=== PATIENT | male | born 1965 | race Caucasian/White ===

== ENCOUNTER 2018-03-05 09:50 | Emergency (ER) | payer OTHER ==
[2018-03-05] MEDS ORDERED: ceFAZolin 1 GM VIAL IVP ONE (10:11)
[2018-03-05] MEDS ORDERED: IBUPROFEN 600 MG TAB PO ONE ×2 (10:32→10:35)
--- NOTE | 2018-03-05 10:36 | EDPHY ---
H & P Time Seen by Provider: 03/05/18 09:55 HPI/ROS: This patient presents with elbow swelling and redness with associated pain 6/10 intensity. He noticed it early in the morning while rolling over in bed and noticed associated redness and swelling. He took 400 mg of ibuprofen at 4:30 a.m. In the morning with mild relief and notes no other exacerbating factors. He is quite concerned about this symptom because of a prior episode of septic bursitis to the left elbow and which she feels oral dicloxacillin and required IV vancomycin in 2010. He came in by private vehicle for evaluation. ROS: Constitutional: No fevers or other constitutional symptoms Integumentary: No skin rash elsewhere. Musculoskeletal: No deep bony pain in the elbow or circumferential swelling. Integumentary: He notes a small abrasion to the this associated left elbow. Cardiovascular: No lightheadedness GI: No nausea vomiting 7 point ROS is otherwise negative. Smoking Status: Never smoked Physical Exam: Physical Exam Vital signs are normal. General: No acute distress Lungs: No respiratory distress. Cardiac: Brisk capillary refill is intact throughout. Pulses are 2+ and symmetric in the affected extremity. Extremities: Atraumatic normal except for left elbow Left elbow: Patient has swelling erythema and tenderness to the left elbow overlying the olecranon area there is subacute superficial abrasion with scab less than 1 cm in size within this area of erythema. The circumference of erythema is approximately 6 cm does not extend in the upper arm or forearm. The patient is able to flex extend his elbow without increase in pain. There is no circumferential elbow swelling. No bony tenderness. Skin: No rash or pallor. See findings as above. No other areas of erythema or rash. Neuro: Alert and oriented with no sensorimotor deficits in the affected elbow ROS: Elbow cellulitis that inflammatory bursitis, septic bursitis Constitutional: Initial Vital Signs Temperature (C) 37.2 C 03/05/18 09:54 Heart Rate 72 03/05/18 09:54 Respiratory Rate 16 03/05/18 09:54 Blood Pressure 151/95 H 03/05/18 09:54 O2 Sat (%) 97 03/05/18 09:54 O2 Delivery Mode Room Air Allergies/Adverse Reactions: No Known Allergies Allergy (Verified 03/05/18 09:57) Home Medications: Medication Instructions Recorded Aspirin 03/05/18 Doxycycline Hyclate [Vibramycin 100 mg PO BID #20 cap 03/05/18 100 MG (*)] Lisinopril 03/05/18 traMADol [Ultram 50 mg (*)] 50 - 100 mg PO Q4 PRN #15 tab 03/05/18 MDM/Departure - MDM Procedures: Bursitis I&D Indication: Potential septic bursitis After verbal consent using chlorhexidine scrub, 1% plain lidocaine with sodium bicarb buffer, 27 gauge needle, 2 mL with good effect, 11. Scalpel blade made a small T-shaped incision and then entered the bursa with sterile suture scissors with clear release of bursal fluid. Patient tolerated this well without complications. Culture was obtained. Bacitracin dressing and Lanre wrap in applied by our tech. There were no complications. Medications Given: Discontinued Medications Cefazolin Sodium (Ancef) 1 gm IVP EDNOW ONE PRN Reason: Protocol Stop: 03/05/18 10:12 Last Admin: 03/05/18 10:25 Dose: 1 gm Ibuprofen (Motrin) 600 mg PO EDNOW ONE Stop: 03/05/18 10:36 Last Admin: 03/05/18 10:35 Dose: 600 mg ED Course/Re-evaluation: IV Ancef, ibuprofen p.o. Dressing applied after I&D Discussion: Patient with findings consistent with elbow cellulitis and underlying bursitis. Given lack of purulence in the bursa it appears this patient has cellulitis with underlying inflammatory bursitis. I counseled regarding this. However given previous septic bursitis the required IV vancomycin after feeling oral dicloxacillin patient is quite apprehensive about feeling oral antibiotics. Proceed with an IV dose of Ancef and will start him on doxycycline. Counseled regarding wound care and he understands need to return emergency department should she develop worsening despite treatment plan. - Depart Disposition: Home, Routine, Self-Care Clinical Impression: Cellulitis of left elbow Bursitis of left elbow Qualifiers: Elbow bursitis location: olecranon bursitis Qualified Code(s): M70.22 - Olecranon bursitis, left elbow Condition: Good Instructions: Cellulitis (ED), Elbow Bursitis (ED) Additional Instructions: Diagnosis: 1. Elbow cellulitis 2. Elbow bursitis Plan: Ibuprofen-600 mg per 6 hr as needed for pain Tylenol in addition as needed up to 1000 mg per 4 hr. However do not exceed 3000 mg of Tylenol in 24 hr Tramadol in addition if needed for pain control. No driving, alcohol or come tramadol. Doxycycline antibiotic for the next 10 days. Take a probiotic and/or yogurt while on this to prevent loose stools. Return for any significant worsening despite the treatment plan. Prescriptions: Doxycycline Hyclate [Vibramycin 100 MG (*)] 100 mg PO BID #20 cap traMADol [Ultram 50 mg (*)] 50 - 100 mg PO Q4 PRN #15 tab PRN Reason: breakthrough pain Referrals: Cathy Soler [Primary Care Provider] - As per Instructions
[2018-03-05 11:00] VITALS: BP 149/97
== END 2018-03-05 10:53 | disposition home or self-care (01) ==
LOC: CED 09:50
PROC: 0J9F3ZZ Drainage of Left Upper Arm Subcutaneous Tissue and Fascia, Percutaneous Approach (ICD-10-PCS; principal; 2018-03-05)
DX: L03.114 Cellulitis of left upper limb (principal); M70.22 Olecranon bursitis, left elbow; Z79.82 Long term (current) use of aspirin
CPT/HCPCS: 96374; J0690

== ENCOUNTER 2018-03-06 09:16 | Emergency (ER) | payer OTHER ==
--- NOTE | 2018-03-06 10:34 | EDPHY ---
H & P Time Seen by Provider: 03/06/18 09:45 HPI/ROS: I saw this patient yesterday with left elbow cellulitis and underlying elbow bursitis-olecranon with prior history of septic bursitis in 2015 other treated with a single dose of Ancef and start him on doxycycline. He awakened early this morning with chills. He had ongoing moderate elbow discomfort similar to yesterday. He took ibuprofen 600 mg at 8:15 a.m. With subjective fever and a detected a temperature of a 100.6 degrees when he measured at home at 9:00 a.m.. Due to concern over potential worsening infection given the presence of fever and chills he came back in for recheck of his elbow. He drove himself here by private vehicle. He reports compliance with doxycycline having taken 3 doses since I saw him yesterday morning here. ROS: Constitutional: Fevers and chills as above Cardiovascular: No lightheadedness GI: No nausea vomiting integumentary: The dressing in Lanre wrap remained on the elbow and has not recheck to the elbow since last night. Neuro: No numbness or tingling the elbow. 5 point ROS is otherwise negative Past Medical/Surgical History: Elbow cellulitis, bursitis Hypertension Smoking Status: Never smoked Physical Exam: Physical Exam Vital signs are normal. General: No acute distress Eyes: Pupils equal and react to light. Extraocular motions are intact. Lungs: No respiratory distress. Cardiac: Brisk capillary refill is intact throughout. Pulses are 2+ and symmetric in the affected extremity. Left elbow: The swelling is diminished compared to yesterday after draining olecranon bursa. There is erythema that extends to 3 cm beyond the initial surgical marker demarcation of erythema from yesterday inferiorly. No extension superiorly. Patient has minimal tenderness and slight warmth to touch to the area of erythema. There is no circumferential elbow swelling retains good range of motion of his elbow without significant pain Skin: See skin findings and elbow above. Otherwise No rash or pallor. Neuro: Alert with no sensorimotor deficits in the affected elbow. Constitutional: Initial Vital Signs Temperature (C) 37 C 03/06/18 09:35 Heart Rate 81 03/06/18 09:35 Respiratory Rate 16 03/06/18 09:35 Blood Pressure 148/96 H 03/06/18 09:35 O2 Sat (%) 95 03/06/18 09:35 O2 Delivery Mode Room Air Allergies/Adverse Reactions: No Known Allergies Allergy (Verified 03/06/18 09:39) Home Medications: Medication Instructions Recorded Aspirin 03/05/18 Doxycycline Hyclate [Vibramycin 100 mg PO BID #20 cap 03/05/18 100 MG (*)] Lisinopril 03/05/18 traMADol [Ultram 50 mg (*)] 50 - 100 mg PO Q4 PRN #15 tab 03/05/18 MDM/Departure - MDM Medications Given: Discontinued Medications Ceftriaxone Sodium/Dextrose (Rocephin 1 Gm (Premix)) 50 mls @ 100 mls/hr IV EDNOW ONE PRN Reason: Protocol Stop: 03/06/18 10:20 Last Admin: 03/06/18 10:24 Dose: 50 mls ED Course/Re-evaluation: IV ceftriaxone 1 g Discussion: Patient with the above cellulitis with underlying bursitis that seems primarily inflammatory given lack of overt purulence with culture pending. Given his fevers chills overnight gave him another dose of IV antibiotics. He will continue his doxycycline I suspect that will continue to improve. Given the doubt for need of any subsequent parental antibiotics will remove his IV today. - Depart Disposition: Home, Routine, Self-Care Clinical Impression: Cellulitis of left elbow, Olecranon bursitis of left elbow Condition: Good Instructions: Cellulitis (ED), Elbow Bursitis (ED) Additional Instructions: Diagnosis: Recheck left elbow cellulitis and bursitis You received a dose of ceftriaxone antibiotic IV today. Plan: Continue your doxycycline antibiotic Continue ibuprofen Tylenol for discomfort Clean the wound daily Return for any significant worsening despite the treatment plan.
[2018-03-06 11:09] VITALS: BP 140/85
== END 2018-03-06 11:09 | disposition home or self-care (01) ==
LOC: CED 09:16
DX: M70.22 Olecranon bursitis, left elbow (principal); L03.114 Cellulitis of left upper limb; I10 Essential (primary) hypertension; Z79.82 Long term (current) use of aspirin
CPT/HCPCS: 96365; J0696

== ENCOUNTER 2018-03-07 15:33 | Emergency (ER) | payer OTHER ==
[2018-03-07 15:53] VITALS: BP 168/78
--- NOTE | 2018-03-07 16:29 | EDPHY ---
H & P Stated Complaint: PT. states here for Time Seen by Provider: 03/07/18 15:57 HPI/ROS: CHIEF COMPLAINT: Left arm infection HISTORY OF PRESENT ILLNESS: The patient is a 52-year-old man who is been seen here yesterday and the day before for a cellulitis/bursitis to his left elbow. He has been concerned because he had a similar situation in 2010 that required several days with the vancomycin before it got better. He states that he is actually feeling better today. He no longer has a fever. His elbows less painful. He is however concerned because the redness has spread slightly up his tricep. No purulence. Cultures came back with MSSA. He was initially given doxycycline and staff and then yesterday was given doxycycline and Rocephin. REVIEW OF SYSTEMS: Constitutional: denies: chills, fever, recent illness, recent injury EENTM: denies: blurred vision, double vision, nose congestion Respiratory: denies: cough, shortness of breath Cardiac: denies: chest pain, irregular heart rate, lightheadedness, palpitations Gastrointestinal/Abdominal: denies: abdominal pain, diarrhea, nausea, vomiting, blood streaked stools Genitourinary: denies: dysuria, frequency, hematuria, pain Musculoskeletal: denies: joint pain, muscle pain Skin: See above Neurological: denies: headache, numbness, paresthesia, tingling, dizziness, weakness Hematologic/Lymphatic: denies: blood clots, easy bleeding, easy bruising Immunologic/allergic: denies: HIV/AIDS, transplant EXAM: GENERAL: Well-appearing, well-nourished and in no acute distress. HEAD: Atraumatic, normocephalic. EYES: Pupils equal round and reactive to light, extraocular movements intact, sclera anicteric, conjunctiva are normal. ENT: TMs normal, nares patent, oropharynx clear without exudates. Moist mucous membranes. NECK: Normal range of motion, supple without lymphadenopathy or JVD. LUNGS: Breath sounds clear to auscultation bilaterally and equal. No wheezes rales or rhonchi. HEART: Regular rate and rhythm without murmurs, rubs or gallops. ABDOMEN: Soft, nontender, normoactive bowel sounds. No guarding, no rebound. No masses appreciated. BACK: No CVA tenderness, no spinal tenderness, step-offs or deformities EXTREMITIES: Normal range of motion, no pitting or edema. No clubbing or cyanosis. NEUROLOGICAL: Cranial nerves II through XII grossly intact. Normal speech, normal gait. 5/5 strength, normal movement in all extremities, normal sensation PSYCH: Normal mood, normal affect. SKIN: Left elbow with very faint cellulitis to left elbow up the triceps region. No purulence. No abscess. Source: Patient Exam Limitations: No limitations - Personal History Tetanus Vaccine Date: within 10 years - Medical/Surgical History Hx Asthma: No Hx Chronic Respiratory Disease: No Hx Diabetes: No Hx Cardiac Disease: No Hx Renal Disease: No Hx Cirrhosis: No Hx Alcoholism: No Hx HIV/AIDS: No Hx Splenectomy or Spleen Trauma: No Other PMH: L elbow bursitis, HTN, FLOYD, appendectomy - Social History Smoking Status: Never smoked Constitutional: Initial Vital Signs Temperature (C) 37.2 C 03/07/18 15:42 Heart Rate 87 03/07/18 15:42 Respiratory Rate 16 03/07/18 15:42 Blood Pressure 168/78 H 03/07/18 15:42 O2 Sat (%) 95 03/07/18 15:42 O2 Delivery Mode Room Air Allergies/Adverse Reactions: No Known Allergies Allergy (Verified 03/07/18 15:39) Home Medications: Medication Instructions Recorded Aspirin 03/05/18 Doxycycline Hyclate [Vibramycin 100 mg PO BID #20 cap 03/05/18 100 MG (*)] Lisinopril 03/05/18 traMADol [Ultram 50 mg (*)] 50 - 100 mg PO Q4 PRN #15 tab 03/05/18 Cephalexin [Keflex (RX)] 500 mg PO QID #30 cap 03/07/18 Medical Decision Making ED Course/Re-evaluation: The patient overall is feeling better than yesterday. He no longer has a fever. His elbow is less painful. He does however have very minor extension of the erythema. It is very faint. It is not thickened or indurated. His cultures are back today and should be sensitive to doxycycline as well as the Ancef and Rocephin. It is possible however that this is actually a strep infection and therefore doxycycline will not be effective. I will give him another dose of Rocephin here and add Keflex to his regimen. We discussed vancomycin since he has had success with this in the past. A single dose would not be helpful however and he would have to return every 12 hr for several days or be admitted. We would like to avoid this. At this point I feel that he is improving overall and elevation to vancomycin is not warranted. He understands that I may be wrong and that if his symptoms worsen tomorrow to return. Differential Diagnosis: Partial list of the Differential diagnosis considered include but were not limited to; cellulitis, bursitis and although unlikely based on the history and physical exam, I also considered abscess, fasciitis, septic joint. I discussed these differential diagnoses and the plan with the patient as well as the usual and expected course. The patient understands that the diagnosis is provisional and that in medicine we are not always correct and that further workup is often warranted. Usual and customary warnings were given. All of the patient's questions were answered. The patient was instructed to return to the emergency department should the symptoms at all worsen or return, otherwise to followup with the physician as we discussed. - Data Points Medications Given: Discontinued Medications Ceftriaxone Sodium/Dextrose (Rocephin 1 Gm (Premix)) 50 mls @ 100 mls/hr IV EDNOW ONE PRN Reason: Protocol Stop: 03/07/18 16:54 Last Admin: 03/07/18 16:45 Dose: 50 mls Departure - Departure Disposition: Home, Routine, Self-Care Clinical Impression: Cellulitis Qualifiers: Site of cellulitis: extremity Site of cellulitis of extremity: upper extremity Laterality: left Qualified Code(s): L03.114 - Cellulitis of left upper limb Condition: Fair Instructions: Cephalexin (By mouth), Cellulitis (ED) Referrals: Cathy Soler [Primary Care Provider] - As per Instructions Prescriptions: Cephalexin [Keflex (RX)] 500 mg PO QID #30 cap
== END 2018-03-07 17:25 | disposition home or self-care (01) ==
LOC: CED 15:33
DX: L03.114 Cellulitis of left upper limb (principal); I10 Essential (primary) hypertension; Z79.82 Long term (current) use of aspirin
CPT/HCPCS: 96365; J0696

== ENCOUNTER 2018-03-07 20:23 | Emergency (ER) | payer OTHER ==
--- NOTE | 2018-03-07 20:34 | EDPHY ---
H & P Stated Complaint: returned ED visit due fevers and inc. pain from Lt elbow infection Time Seen by Provider: 03/07/18 20:31 HPI/ROS: CHIEF COMPLAINT: Cellulitis HISTORY OF PRESENT ILLNESS: Patient is a 52-year-old man who comes to the emergency department complaining of fever and cellulitis. I saw him a few hours ago for the same. At that time he stated that he was overall feeling better but there was slightly increased to the erythema of his arm. We discussed options. His cultures show MSSA. He was on doxycycline. I gave him a dose of IV Rocephin added Keflex. We told him to come back if his fever returned greater than 101. He states that it is now 102. He wishes to have vancomycin infusions because he had something similar to this in 2010 and that was the only thing that seem to help him. REVIEW OF SYSTEMS: Constitutional: denies: chills, fever, recent illness, recent injury EENTM: denies: blurred vision, double vision, nose congestion Respiratory: denies: cough, shortness of breath Cardiac: denies: chest pain, irregular heart rate, lightheadedness, palpitations Gastrointestinal/Abdominal: denies: abdominal pain, diarrhea, nausea, vomiting, blood streaked stools Genitourinary: denies: dysuria, frequency, hematuria, pain Musculoskeletal: denies: joint pain, muscle pain Skin: See above Neurological: denies: headache, numbness, paresthesia, tingling, dizziness, weakness Hematologic/Lymphatic: denies: blood clots, easy bleeding, easy bruising Immunologic/allergic: denies: HIV/AIDS, transplant EXAM: GENERAL: Moderate distress. HEAD: Atraumatic, normocephalic. EYES: Pupils equal round and reactive to light, extraocular movements intact, sclera anicteric, conjunctiva are normal. ENT: TMs normal, nares patent, oropharynx clear without exudates. Moist mucous membranes. NECK: Normal range of motion, supple without lymphadenopathy or JVD. LUNGS: Breath sounds clear to auscultation bilaterally and equal. No wheezes rales or rhonchi. HEART: Regular rate and rhythm without murmurs, rubs or gallops. ABDOMEN: Soft, nontender, normoactive bowel sounds. No guarding, no rebound. No masses appreciated. BACK: No CVA tenderness, no spinal tenderness, step-offs or deformities EXTREMITIES: Normal range of motion, no pitting or edema. No clubbing or cyanosis. NEUROLOGICAL: Cranial nerves II through XII grossly intact. Normal speech, normal gait. 5/5 strength, normal movement in all extremities, normal sensation PSYCH: Normal mood, normal affect. SKIN: Left elbow cellulitis, warm to the touch, no induration. No purulence. Source: Patient, Family Exam Limitations: No limitations - Personal History Tetanus Vaccine Date: within 10 years - Medical/Surgical History Hx Asthma: No Hx Chronic Respiratory Disease: No Hx Diabetes: No Hx Cardiac Disease: No Hx Renal Disease: No Hx Cirrhosis: No Hx Alcoholism: No Hx HIV/AIDS: No Hx Splenectomy or Spleen Trauma: No Other PMH: L elbow bursitis, HTN, FLOYD, appendectomy - Family History Significant Family History: No pertinent family hx - Social History Smoking Status: Never smoked Alcohol Use: None Constitutional: Initial Vital Signs Temperature (C) 37.7 C 03/07/18 20:28 Heart Rate 106 H 03/07/18 20:28 Respiratory Rate 20 03/07/18 20:28 Blood Pressure 184/104 H 03/07/18 20:28 O2 Sat (%) 98 03/07/18 20:28 O2 Delivery Mode Room Air Allergies/Adverse Reactions: No Known Allergies Allergy (Verified 03/08/18 09:12) Home Medications: Medication Instructions Recorded Aspirin 03/05/18 Doxycycline Hyclate [Vibramycin 100 mg PO BID #20 cap 03/05/18 100 MG (*)] Lisinopril 03/05/18 traMADol [Ultram 50 mg (*)] 50 - 100 mg PO Q4 PRN #15 tab 03/05/18 Cephalexin [Keflex (RX)] 500 mg PO QID #30 cap 03/07/18 Medical Decision Making ED Course/Re-evaluation: I will start the patient on vancomycin at the larger dose which he receive successfully during his previous similar infection. Patient is feeling better. He will return every 12 hr over the weekend for repeat infusions and then will referred to infectious disease on Friday. Differential Diagnosis: Partial list of the Differential diagnosis considered include but were not limited to; cellulitis, bursitis, abscess and although unlikely based on the history and physical exam, I also considered osteomyelitis, fasciitis, allergic reaction, septic joint. I discussed these differential diagnoses and the plan with the patient as well as the usual and expected course. The patient understands that the diagnosis is provisional and that in medicine we are not always correct and that further workup is often warranted. Usual and customary warnings were given. All of the patient's questions were answered. The patient was instructed to return to the emergency department should the symptoms at all worsen or return, otherwise to followup with the physician as we discussed. - Data Points Medications Given: Discontinued Medications Vancomycin HCl 1.75 gm/ Sodium (Chloride) 250 mls @ 250 mls/hr IV EDNOW ONE PRN Reason: Protocol Stop: 03/07/18 21:34 Last Admin: 03/07/18 20:50 Dose: 250 mls Departure - Departure Disposition: Home, Routine, Self-Care Clinical Impression: Cellulitis Qualifiers: Site of cellulitis: extremity Site of cellulitis of extremity: upper extremity Laterality: left Qualified Code(s): L03.114 - Cellulitis of left upper limb Condition: Fair Instructions: Cellulitis (DC) Additional Instructions: Return in 12 hr for another vancomycin infusion 1.75 g Referrals: Cathy Soler [Primary Care Provider] - As per Instructions Da Jones MD [Medical Doctor] - 2-3 days, call for appt. ED,PHYSICIAN VIVIAN [Medical Doctor] - 1 day without fail (12 hr)
[2018-03-07] MEDS ORDERED: VANCOMYCIN 1.75 GM in NS 250 ML IV ONE (20:35)
[2018-03-07] MEDS ORDERED: IBUPROFEN 800 MG TAB PO ONE (20:42)
[2018-03-07 23:04] VITALS: BP 124/62
== END 2018-03-07 23:01 | disposition home or self-care (01) ==
LOC: CED 20:23
DX: L03.114 Cellulitis of left upper limb (principal); I10 Essential (primary) hypertension; Z79.82 Long term (current) use of aspirin
CPT/HCPCS: 96365; J3370

== ENCOUNTER 2018-03-08 08:58 | Emergency (ER) | payer OTHER ==
--- NOTE | 2018-03-08 09:18 | EDPHY ---
H & P Time Seen by Provider: 03/08/18 09:06 HPI/ROS: This patient is here day 3 of treatment for left elbow cellulitis/olecranon bursitis. On the 1st day of treatment I I&D'd the elbow and sent a culture which is grown methicillin sensitive Staph aureus. Despite being treated initially with an IV dose of Ancef and with doxycycline, the patient subsequently developed fevers and worsening symptoms. On day 2 I gave him Rocephin dose IV continue the doxycycline. He presented with spreading erythema a yesterday and was seen by Dr. Mobley treated initially with an additional Rocephin dose and addition of Keflex orally. Despite this the patient developed fevers to 102 later that same day the returned. This a few years ago he had had septic bursitis that required IV vancomycin after failing oral antibiotics he given worsening symptoms decision was made to place him on vancomycin. He received the 1st dose 1.75 in come ice last night and returned today for repeat vancomycin. He reports that since last night the erythema that had spread up his upper arm has diminished and the pain has diminished. No fevers overnight. He continues on oral doxy and Keflex. ROS: Constitutional: No fevers overnight Integumentary: No further spreading of erythema GI: No nausea vomiting Cardiovascular: No lightheadedness 5 point ROS is otherwise negative Past Medical/Surgical History: Septic bursitis requiring IV vancomycin Smoking Status: Never smoked Physical Exam: Physical Exam Vital signs are normal. General: No acute distress Eyes: Pupils equal and react to light. Extraocular motions are intact. Lungs: No respiratory distress. Cardiac: Brisk capillary refill is intact throughout. Pulses are 2+ and symmetric in the affected extremity. Skin: No rash or pallor other than elbow findings/upper extremity findings listed below Left upper extremity: The patient's I&D site is healing nicely. There is currently no fluctuance or significant swelling at the elbow. There is erythema that extends up the patient's medial upper arm though he reports the intensity is erythema is diminished since yesterday. There is no circumferential elbow joint swelling retains full range of motion of the elbow without increase in pain. Neuro: Alert with no sensorimotor deficits. Initial differential diagnosis: Cellulitis, bursitis, osteomyelitis Constitutional: Initial Vital Signs Temperature (C) 37.1 C 03/08/18 09:12 Heart Rate 60 03/08/18 09:12 Respiratory Rate 16 03/08/18 09:12 Blood Pressure 143/91 H 03/08/18 09:12 O2 Sat (%) 95 03/08/18 09:12 O2 Delivery Mode Room Air Allergies/Adverse Reactions: No Known Allergies Allergy (Verified 03/08/18 09:12) Home Medications: Medication Instructions Recorded Aspirin 03/05/18 Doxycycline Hyclate [Vibramycin 100 mg PO BID #20 cap 03/05/18 100 MG (*)] Lisinopril 03/05/18 traMADol [Ultram 50 mg (*)] 50 - 100 mg PO Q4 PRN #15 tab 03/05/18 Cephalexin [Keflex (RX)] 500 mg PO QID #30 cap 03/07/18 MDM/Departure - MDM ED Course/Re-evaluation: IV vancomycin - Depart Disposition: Home, Routine, Self-Care Clinical Impression: Cellulitis of left elbow Condition: Good Instructions: Cellulitis (ED) Additional Instructions: Diagnosis: Elbow cellulitis Plan: Apply warm packs to the affected area 3 times a day or more Continue ibuprofen Tylenol for discomfort Return for IV vancomycin tomorrow Referrals: Cathy Soler [Primary Care Provider] - As per Instructions
[2018-03-08] MEDS ORDERED: VANCOMYCIN 1 GM VIAL ONE (09:21)
[2018-03-08] MEDS ORDERED: VANCOMYCIN 1.75 GM in NS 500 ML IV ONE (09:26)
[2018-03-08] MEDS ORDERED: VANCOMYCIN 1.75 GM in D5W 500 ML IV SCH (09:30)
[2018-03-08 12:40] VITALS: BP 137/90
== END 2018-03-08 11:45 | disposition home or self-care (01) ==
LOC: CED 08:58
DX: L03.114 Cellulitis of left upper limb (principal); Z79.82 Long term (current) use of aspirin
CPT/HCPCS: 96365; 96366; J3370

== ENCOUNTER 2018-12-27 10:18 | Emergency (ER) | payer OTHER ==
[2018-12-27 10:32] VITALS: BP 141/89
--- NOTE | 2018-12-27 10:54 | EDPHY ---
H & P Time Seen by Provider: 12/27/18 10:23 HPI/ROS: This patient reports "bubbles on his sclera/conjunctiva on the right eye the occurred over the past several hours. He reports slight itching associated with this. He does have pets and worse contacts but was should be removed contact last night. He is concerned about infection in his eye. He has not had any significant purulent discharge. He has had slight increase in tearing from the affected eye. ROS: Constitutional: No fevers HEENT: No URI symptoms. No sneezing. No left eye symptoms. No significant vision changes. No recent trauma to the eye Neuro: No headache. No numbness or tingling. No other complaints Integumentary: No rash 5 point review of symptoms is performed and otherwise negative with exception of pertinent positives and negatives listed in HPI and ROS Smoking Status: Never smoked Physical Exam: Physical Exam Vital signs are normal. General: No acute distress HEENT: Nose: Clear discharge bilaterally. No sinus tenderness to percussion. Ears: External canals and tympanic membranes are clear with no erythema or abnormal findings bilaterally. Oropharynx: No erythema or exudates. No dysphonia. No drooling or stridor. Eyes: Pupils equal and react to light. Extraocular motions are intact. All slit-lamp exam the right ice notable for edema to the conjunctiva primarily lateral aspect of the right eye. Appreciate no evidence of foreign bodies. The cornea. Clean without lesions. I inverted the eyelids and appreciate cobblestoning on the lower eyelid. Lids and lashes are otherwise normal. There is no purulent discharge. Cardiac: Brisk capillary refill intact. Skin: No rash or pallor. Neuro: Alert with no focal deficits noted. Initial differential diagnosis: Allergic conjunctivitis given classic findings cobblestoning in conjunctival edema. Patient likely got PET dander on his hand prior to placing his contacts in his eye. Also, considered bacterial conjunctivitis, viral conjunctivitis Constitutional: Initial Vital Signs Temperature (C) 37 C 12/27/18 10:27 Heart Rate 69 12/27/18 10:27 Respiratory Rate 16 12/27/18 10:27 Blood Pressure 141/89 H 12/27/18 10:27 O2 Sat (%) 96 12/27/18 10:27 O2 Delivery Mode Room Air Allergies/Adverse Reactions: No Known Allergies Allergy (Verified 12/27/18 10:31) Home Medications: Medication Instructions Recorded Aspirin 81 mg PO HS 03/05/18 Lisinopril 10 mg PO HS 03/05/18 Ketotifen Fumarate [Zaditor] 2 drops OP BID #5 ml 12/27/18 prednisoLONE ACET 1% [Pred Forte 1 - 2 drops OP BID #1 opht.btl 12/27/18 1% (*)] MDM/Departure - Depart Disposition: Home, Routine, Self-Care Clinical Impression: Allergic conjunctivitis Qualifiers: Laterality: right Qualified Code(s): H10.11 - Acute atopic conjunctivitis, right eye Condition: Good Instructions: Allergies (ED) Additional Instructions: Diagnosis: Allergic conjunctivitis with edema Plan: Wash hands well prior to handling contacts Zaditor [id number] antihistamine eyedrops. If not getting relief with Zaditor, at the steroid eyedrops in addition. In addition consider taking a systemic antihistamine such is [id number] loratadine Follow-up with mig welder if you're not improving with treatment plan. Return emergency department if you develop any significant worsening symptoms despite treatment plan. Prescriptions: Ketotifen Fumarate [Zaditor] 2 drops OP BID #5 ml prednisoLONE ACET 1% [Pred Forte 1% (*)] 1 - 2 drops OP BID #1 opht.btl Referrals: Cathy Soler [Primary Care Provider] - As per Instructions ANA VILLALBA [Non Staff Provider ()] - As per Instructions
== END 2018-12-27 10:56 | disposition home or self-care (01) ==
LOC: CED 10:18
DX: H10.11 Acute atopic conjunctivitis, right eye (principal)
CPT/HCPCS: 99284-ER